=== PATIENT | female | born 2000 | race African-American/Black ===

== ENCOUNTER 2020-10-18 16:40 | Emergency (ER) | payer OTHER ==
--- NOTE | 2020-10-18 18:20 | ER ---
Nurse's Notes [facility] Name: Ludivina Adrian Age: 20 yrs Sex: Female : 2000 Arrival Date: 10/18/2020 Time: 16:41 Bed Waiting Private MD: Diagnosis: Presentation: 10/18 17:17 Chief complaint: Patient states: "I was in the bathroom at home and I felt like I jd3 couldn't breath and I passed out after standing up from the toilet. I had smoked synthetic, but I have never had this reaction before.". Coronavirus screen: At this time, the client does not indicate any symptoms associated with coronavirus-19. Ebola Screen: Patient negative for fever greater than or equal to 101.5 degrees Fahrenheit, and additional compatible Ebola Virus Disease symptoms. Initial Sepsis Screen: Does the patient meet any 2 criteria? No. Patient's initial sepsis screen is negative. Does the patient have a suspected source of infection? No. Patient's initial sepsis screen is negative. Risk Assessment: Do you want to hurt yourself or someone else? Patient reports no desire to harm self or others. Onset of symptoms was October 18, 2020. 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 - Social history:: Smoking status: Patient denies any tobacco usage or history of. Patient uses street drugs. Vital Signs: 17:20 BP 131 / 88; Pulse 116; Resp 19 S; Temp 98.2(TE); Pulse Ox 98% on R/A; Weight 42.18 kg jd3 (R); Height 5 ft. 3 in. (160.02 cm) (R); Pain 2/10; 17:20 Body Mass Index 16.47 (42.18 kg, 160.02 cm) jd3 ED Course: 16:41 Patient arrived in ED. am2 17:11 [facility] kb 17:11 Momo Hughes MD is Attending Physician. kb 17:18 Triage completed. jd3 17:21 Arm band placed on. jd3 Administered Medications: No medications were administered Outcome: 18:20 Patient left the ED. jd3 Signatures: Sharlene Babb FNP-C FNP-Naomi Leblanc am2 Ric Dunn RN RN jd3 Corrections: (The following items were deleted from the chart) 17:22 17:17 Chief complaint: Patient states: "I was in the bathroom at home and I felt like I jd3 couldn't breath and I passed out. I had smoked synthetic, but I have never had this reaction before." jd3 17:23 17:17 Method Of Arrival: Ambulatory jd3 jd3
[2020-10-18 18:26] VITALS: BP 131/88; TEMP 98.2; O2SAT 98
--- NOTE | 2020-10-19 18:23 | EDPHYS ---
Physician Documentation [facility] Name: Ludivina Adrian Age: 20 yrs Sex: Female : 2000 Arrival Date: 10/18/2020 Time: 16:41 Bed Waiting Private MD: ED Physician Momo Hughes HPI: 10/18 23:28 This 20 yrs old Black Female presents to ER via EMS with complaints of Breathing kb Difficulty, heart racing. 23:28 The patient has experienced syncope, lost consciousness. Onset: The symptoms/episode kb began/occurred just prior to arrival. Duration: This was a single episode, a couple of seconds. Context: the episode(s) was witnessed, by no one, occurred at home, occurred while the patient was standing, Just prior to the episode the patient experienced no apparent symptoms. Associated injury: The patient did not suffer any apparent associated injury. Associated signs and symptoms: Pertinent positives: shortness of breath. Current symptoms: Currently, the patient is not experiencing any symptoms, the patient feels back to baseline, no decreased level of consciousness, no confusion, no dysphasia, no headache, no paralysis, no visual changes. The patient has not experienced similar symptoms in the past. The patient has not recently seen a physician. Pt states she went to the restroom after smoking marijuana and when she stood up from the toilet she passed out. States she is not used to smoking marijuana. States she is feeling better now. . 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 - Social history:: Smoking status: Patient denies any tobacco usage or history of. Patient uses street drugs. ROS: 23:27 Constitutional: Negative for fever, chills, and weight loss, ENT: Negative for injury, kb pain, and discharge, Cardiovascular: Negative for chest pain, palpitations, and edema, Abdomen/GI: Negative for abdominal pain, nausea, vomiting, diarrhea, and constipation, MS/Extremity: Negative for injury and deformity, Skin: Negative for injury, rash, and discoloration, Psych: Negative for depression, anxiety, suicide ideation, homicidal ideation, and hallucinations. 23:27 Respiratory: Positive for shortness of breath. 23:27 Neuro: Positive for syncope. Exam: 23:27 Constitutional: This is a well developed, well nourished patient who is awake, alert, kb and in no acute distress. Head/Face: Normocephalic, atraumatic. ENT: Moist Mucous membranes Cardiovascular: Regular rate and rhythm with a normal S1 and S2. No gallops, murmurs, or rubs. No pulse deficits. Respiratory: Respirations even and unlabored. No increased work of breathing, no retractions or nasal flaring. Abdomen/GI: Soft, non-tender. No distention Skin: Warm, dry with normal turgor. Normal color. MS/ Extremity: Pulses equal, no cyanosis. Neurovascular intact. Full, normal range of motion. Neuro: Awake and alert, GCS 15, oriented to person, place, time, and situation. Moves all extremities. Normal gait. Psych: Awake, alert, with orientation to person, place and time. Behavior, mood, and affect are within normal limits. Vital Signs: 17:20 BP 131 / 88; Pulse 116; Resp 19 S; Temp 98.2(TE); Pulse Ox 98% on R/A; Weight 42.18 kg jd3 (R); Height 5 ft. 3 in. (160.02 cm) (R); Pain 2/10; 17:20 Body Mass Index 16.47 (42.18 kg, 160.02 cm) jd3 MDM: 17:23 Patient medically screened. kb 23:27 Data reviewed: vital signs, nurses notes. Data interpreted: Pulse oximetry: on room air kb is 98 %. Interpretation: normal. 10/18 17:54 Order name: [employer] kb Administered Medications: No medications were administered Disposition: 10/19 07:04 Co-signature as Attending Physician, Momo Hughes MD. rn Disposition: 10/18/20 18:20 Patient left the facility post triage evaluation and consult. - Patient left due to feeling better. Signatures: Dispatcher [employer] EDSharlene Escamilla, LEGAL BILLING ANALYST-C LEGAL BILLING ANALYST-Momo Cohn MD MD rn Davies, Jonathon, RN RN jd3
== END 2020-10-18 18:20 | disposition left against medical advice (07) ==
LOC: ER 16:40
DX: R55 Syncope and collapse (principal); Z53.21 Procedure and treatment not carried out due to patient leaving prior to being seen by health care provider
CPT/HCPCS: 99282